=== PATIENT | female | born 1985 | race Two or more races ===

== ENCOUNTER 2021-12-05 20:29 | Emergency (ER) | payer MEDICAID ==
[~2021-12-05] VITALS: Ht 167.6 cm; Wt 112.8 kg
[2021-12-05] MEDS ORDERED: KETOROLAC TROMETH 60MG/2ML VIAL IM ONE (21:30)
[2021-12-05 22:41] VITALS: BP 116/76
== END 2021-12-05 22:43 | disposition home or self-care (01) ==
LOC: ER 20:36
DX: B34.9 Viral infection, unspecified (principal)
CPT/HCPCS: 71045; 93005; 96372; 99283; J1885